=== PATIENT | female | born 1960 | race Hispanic/Latino ===

== ENCOUNTER 2018-12-04 11:39 | Emergency (ER) | payer SELFPAY ==
[2018-12-04] MEDS ORDERED: traMADol HCl 50 MG TAB ONE (12:30)
--- NOTE | 2018-12-04 13:23 | RAD ---
RADIOGRAPH LUMBAR SPINE 5 VIEWS: DATE: 12/04/2018 HISTORY: 58-year-old female with acute low back pain COMPARISON: None FINDINGS: There are 5 lumbar-type vertebrae. There is mild disc space narrowing at L2-3. No high-grade disc spa ce narrowing at any level. No spondylolysis or spondylolisthesis. There is a mild right-convex curvature with apex at L2-3. This causes asymmetrical left-sided disc space narrowing at L2-3. 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 Diffuse osteopenia. If there is radiculopathy, consider noncontrast MRI (unless contraindicated). IMPRESSION: 1. Overall mild lumbar spondylosis. 2. No compression fracture. 3. See above comments.
== END 2018-12-04 13:40 | disposition home or self-care (01) ==
LOC: NAV ERS 11:39
DX: M54.16 Radiculopathy, lumbar region (principal); E11.9 Type 2 diabetes mellitus without complications; E78.5 Hyperlipidemia, unspecified; E78.00 Pure hypercholesterolemia, unspecified; I10 Essential (primary) hypertension; Z79.899 Other long term (current) drug therapy; Z79.84 Long term (current) use of oral hypoglycemic drugs
CPT/HCPCS: 72110

== ENCOUNTER 2021-01-18 18:14 | Emergency (ER) | payer OTHER, SELFPAY ==
[2021-01-18] MEDS ORDERED: Lidocaine 1% (PF) 30 ML VIAL ONE (19:49)
== END 2021-01-18 21:55 | disposition home or self-care (01) ==
LOC: NAV ERS 18:14
DX: S82.141A Displaced bicondylar fracture of right tibia, initial encounter for closed fracture (principal); M25.462 Effusion, left knee; E11.9 Type 2 diabetes mellitus without complications; E78.5 Hyperlipidemia, unspecified; E78.00 Pure hypercholesterolemia, unspecified; I10 Essential (primary) hypertension; Z79.4 Long term (current) use of insulin; Z79.899 Other long term (current) drug therapy; W01.0XXA Fall on same level from slipping, tripping and stumbling without subsequent striking against object, initial encounter
CPT/HCPCS: 20610; J2001

== ENCOUNTER 2021-03-18 11:39 | Emergency (ER) | payer OTHER, SELFPAY ==
[2021-03-18] MEDS ORDERED: Naproxen 500 MG TAB ONE (12:53)
[2021-03-18] MEDS ORDERED: traMADol HCl 50 MG TAB ONE (12:53)
== END 2021-03-18 13:00 | disposition home or self-care (01) ==
LOC: NAV ERS 11:39
DX: S80.01XA Contusion of right knee, initial encounter (principal); E11.9 Type 2 diabetes mellitus without complications; E78.5 Hyperlipidemia, unspecified; I10 Essential (primary) hypertension; Z79.899 Other long term (current) drug therapy; Z79.84 Long term (current) use of oral hypoglycemic drugs; W18.30XA Fall on same level, unspecified, initial encounter